=== PATIENT | male | born 1985 | race Caucasian/White ===

== ENCOUNTER 2019-03-03 15:00 | Observation (INO) ==
--- NOTE | 2019-03-03 15:27 | Emergency Department Note ---
Disposition Clinical Impression: Intussusception Altered mental status Qualifiers: Altered mental status type: transient alteration of awareness Qualified Code(s): R40.4 - Transient alteration of awareness Disposition: Admitted As Inpatient Condition: Fair Time of Disposition: 22:33 General Adult HPI - General Chief complaint: ED Abdominal Pain Stated complaint: heat exhaustion Time Seen by Provider: 03/03/19 15:04 Source: EMS Mode of arrival: EMS Limitations: no limitations Nursing Notes Reviewed: Yes Vital Signs Reviewed: Yes - History of Present Illness HPI Narrative: Patient presenting to the ED via EMS for possible heat exhaustion. Patient is homeless and was found "unresponsive" on the sidewalk. When EMS arrived, the patient was awake and following commands. States that he hurts all over. Has been outside for some unknown amount of time. He is complaining of abdominal cramping, but is somewhat confused. He is asking me how much the "girl paid me," but he has no insight into what this means. He is really unable to elaborate on any pertinent history or symptoms. States he does feel constipated Pain Scale: 6 - Related Data Allergies Allergy/AdvReac Type Severity Reaction Status Date / Time Penicillins Allergy Swelling Verified 12/15/18 03:39 of Lip/Tongue/Throat Review of Systems: As reviewed in the HPI. All other systems reviewed are negative or normal. Past Medical History - Past Medical History Attestation: Yes The following information was validated with the patient. Source: old records reviewed Medical history: Reports: asthma Surgical history: Reports: non-contributory Psychiatric history: Reports: no psych history - Social History Smoking Status: Current every day smoker Smokeless Tobacco Status: Yes Alcohol use: Reports: occasionally Drug use: Reports: cocaine, opiates, marijuana, methamphetamine Physical Exam CONSTITUTIONAL: [ill appearing, alert and curled up on his right side] EYES: clear conjunctiva, PERRLA] HENT: [Normocephalic, atraumatic, dry mucus membranes, normal oropharynx] NECK: [normal inspection, full ROM, trachea midline, no obvious swelling] PULMONARY: [normal lung sounds bilaterally, normal chest rise and fall, no respiratory distress or stridor, no wheezes, no rales, no rhonchi CARDIOVASCULAR: [Tachycardic, regular rhythm, normal heart sounds, no murmurs, distal extremities are warm and well perfused] GASTROINSTESTINAL: [Unable to examine at this time as patient is in the position] GENITOURINARY/RECTAL: [deferred] NEUROLOGIC: [Alert, oriented to person and place, questionably time, normal speech, moves all extremities] EXTREMITIES: [Normal inspection, full ROM, no tenderness, no pedal edema, normal capillary refill] MUSCULOSKELETAL: [no gross deformities, atraumatic] SKIN: [No cyanosis, no diaphoresis, normal color, warm, no rash] PSYCHIATRIC: [normal mood and affect] - General Limitations: no limitations General appearance: alert, in no apparent distress Course Course Narrative: Patient has some mild transaminitis and CT showed intussusception. Spoke with on-call surgeon and was agreeable for consultation with admission to the medicine service. Vital Signs Temperature 98.9 F 03/03/19 15:12 Pulse Rate 114 03/03/19 15:12 Respiratory Rate 16 03/03/19 15:12 Blood Pressure 82/40 03/03/19 15:12 O2 Sat by Pulse Oximetry 95 03/03/19 15:12 Temperature 101.6 F H 03/03/19 21:44 Pulse Rate 101 03/03/19 21:44 Respiratory Rate 17 03/03/19 21:44 Blood Pressure 97/65 03/03/19 21:44 O2 Sat by Pulse Oximetry 100 03/03/19 21:44 Oxygen Delivery Oxygen Delivery Room Air Medical Decision Making - Lab Data Result diagrams: 03/03/19 15:23 03/03/19 15:23 Lab Results 03/03/19 03/03/19 03/03/19 Range/Units 15:23 15:23 15:23 WBC 5.0 (4.3-11.1) K/mcL RBC 4.39 (4.19-5.50) M/mcL Hgb 13.5 (12.9-16.9) g/dL Hct 39.9 (37.5-50.1) % MCV 90.9 (83.0-100.0) fL MCH 30.8 (28.0-33.3) pg MCHC 33.8 (31.6-35.5) g/dL RDW 13.6 (11.5-14.5) % Plt Count 251 (140-400) K/mcL MPV 8.5 L (9.4-12.4) fL Immature Gran % 0.2 (0-4) % Seg Neutrophils % 85.9 % Lymphocytes % 13.3 % Monocytes % 0.4 % Eosinophils % 0.0 % Basophils % 0.2 % Neutrophils # 4.3 (1.6-8.9) K/mcL Lymphocytes # 0.7 (0.6-4.6) K/mcL Monocytes # 0.0 (0.0-1.3) K/mcL Eosinophils # 0.0 (0.0-0.6) K/mcL Basophils # 0.0 (0.0-0.2) K/mcL Reactive Lymphocytes Present A (Not Present) PT 13.2 H (9.4-12.1) Seconds INR 1.2 APTT 26.6 (26.0-36.0) Seconds Sodium 137 (136-145) mEq/L Potassium 3.5 (3.5-5.1) mEq/L Chloride 100 (98-107) mEq/L Carbon Dioxide 28 (23-29) mEq/L BUN 23 H (6-20) mg/dL Creatinine 1.35 H (0.70-1.30) mg/dL Est GFR ( Amer) > 60 (> 60) Est GFR (Non-Af Amer) > 60 (> 60) BUN/Creatinine Ratio 17 (6-26) Glucose 117 H (70-105) mg/dL Calculated Osmolality 289 (280-300) Uric Acid 6.4 (2.3-7.6) mg/dL Calcium 9.2 (8.6-10.3) mg/dL Magnesium 1.8 (1.6-2.6) mg/dL Total Bilirubin 1.6 H (0.3-1.0) mg/dL Direct Bilirubin 0.7 H (0.0-0.2) mg/dL Indirect Bilirubin 0.9 (0.0-1.2) mg/dL AST 556 H (13-39) Units/L ALT 194 H (7-52) Units/L Alkaline Phosphatase 163 H (34-104) Units/L Creatine Kinase 138 (30-223) Units/L Serum Total Protein 6.5 (6.4-8.9) g/dL Albumin 4.0 (3.5-5.7) g/dL Globulin 2.5 (2.4-3.5) g/dL Albumin/Globulin Ratio 1.6 (1.1-2.2) Urine Color (Yellow) Urine Clarity (Clear) Urine pH (5.0-8.0) pH Units Ur Specific [place] (1.010-1.025) Urine Protein (Neg-Trace) mg/dL Urine Glucose (UA) (Normal) mg/dL Urine Ketones (Negative) mg/dL Urine Blood (Negative) Urine Nitrite (Negative) Urine Bilirubin (Negative) Urine Urobilinogen (Normal) mg/dL Ur Leukocyte Esterase (Negative) Ur Culture Indicated? (NO) Salicylates < 2.5 L (15.0-30.0) mg/dL Acetaminophen < 10 L (10-20) mcg/mL Ethyl Alcohol < 10 (Less than 10) mg/dL Hepatitis A IgM Ab (Nonreactive) Hep Bs Antigen (Nonreactive) Hep B Core IgM Ab (Nonreactive) 03/03/19 03/03/19 Range/Units 15:23 17:52 WBC (4.3-11.1) K/mcL RBC (4.19-5.50) M/mcL Hgb (12.9-16.9) g/dL Hct (37.5-50.1) % MCV (83.0-100.0) fL MCH (28.0-33.3) pg MCHC (31.6-35.5) g/dL RDW (11.5-14.5) % Plt Count (140-400) K/mcL MPV (9.4-12.4) fL Immature Gran % (0-4) % Seg Neutrophils % % Lymphocytes % % Monocytes % % Eosinophils % % Basophils % % Neutrophils # (1.6-8.9) K/mcL Lymphocytes # (0.6-4.6) K/mcL Monocytes # (0.0-1.3) K/mcL Eosinophils # (0.0-0.6) K/mcL Basophils # (0.0-0.2) K/mcL Reactive Lymphocytes (Not Present) PT (9.4-12.1) Seconds INR APTT (26.0-36.0) Seconds Sodium (136-145) mEq/L Potassium (3.5-5.1) mEq/L Chloride (98-107) mEq/L Carbon Dioxide (23-29) mEq/L BUN (6-20) mg/dL Creatinine (0.70-1.30) mg/dL Est GFR ( Amer) (> 60) Est GFR (Non-Af Amer) (> 60) BUN/Creatinine Ratio (6-26) Glucose (70-105) mg/dL Calculated Osmolality (280-300) Uric Acid (2.3-7.6) mg/dL Calcium (8.6-10.3) mg/dL Magnesium (1.6-2.6) mg/dL Total Bilirubin (0.3-1.0) mg/dL Direct Bilirubin (0.0-0.2) mg/dL Indirect Bilirubin (0.0-1.2) mg/dL AST (13-39) Units/L ALT (7-52) Units/L Alkaline Phosphatase (34-104) Units/L Creatine Kinase (30-223) Units/L Serum Total Protein (6.4-8.9) g/dL Albumin (3.5-5.7) g/dL Globulin (2.4-3.5) g/dL Albumin/Globulin Ratio (1.1-2.2) Urine Color Yellow (Yellow) Urine Clarity Clear (Clear) Urine pH 6.0 (5.0-8.0) pH Units Ur Specific [place] 1.006 L (1.010-1.025) Urine Protein Negative (Neg-Trace) mg/dL Urine Glucose (UA) Normal (Normal) mg/dL Urine Ketones Negative (Negative) mg/dL Urine Blood Negative (Negative) Urine Nitrite Negative (Negative) Urine Bilirubin Negative (Negative) Urine Urobilinogen Normal (Normal) mg/dL Ur Leukocyte Esterase Negative (Negative) Ur Culture Indicated? NO (NO) Salicylates (15.0-30.0) mg/dL Acetaminophen (10-20) mcg/mL Ethyl Alcohol (Less than 10) mg/dL Hepatitis A IgM Ab Nonreactive (Nonreactive) Hep Bs Antigen Nonreactive (Nonreactive) Hep B Core IgM Ab Nonreactive (Nonreactive)
[2019-03-03] MEDS: 0.9 % Sodium Chloride 1,000 ML IVC SCH ×2 (15:45→17:29)
[2019-03-03 15:46] LABS: Basophils % 0.2 %; Hematocrit 39.9 % (37.5-50.1); Hemoglobin 13.5 g/dL (12.9-16.9); Immature Granulocytes % 0.2 % (0-4); Lymphocytes # 0.7 K/mcL (0.6-4.6); Lymphocytes % 13.3 %; Mean Corpuscular HGB Conc 33.8 g/dL (31.6-35.5); Mean Corpuscular Hemoglobin 30.8 pg (28.0-33.3); Mean Corpuscular Volume 90.9 fL (83.0-100.0); Mean Platelet Volume 8.5 fL (9.4-12.4); Monocytes % 0.4 %; Neutrophils # 4.3 K/mcL (1.6-8.9); Platelet Count 251 K/mcL (140-400); Red Blood Count 4.39 M/mcL (4.19-5.50); Red Cell Distribution Width 13.6 % (11.5-14.5); Segmented Neutrophils % 85.9 %
[2019-03-03 15:53] LABS: INR 1.2; Prothrombin Time 13.2 Seconds (9.4-12.1)
[2019-03-03 15:56] LABS: Activated Partial Thrombo Time 26.6 Seconds (26.0-36.0)
--- NOTE | 2019-03-03 16:02 | Emergency Department Note ---
Disposition Clinical Impression: Altered mental status Qualifiers: Altered mental status type: transient alteration of awareness Qualified Code(s): R40.4 - Transient alteration of awareness Disposition: Still a Patient Referrals: NONE,PCP [Primary Care Provider] - Forms: ED Satisfaction Letter, Work/School Release Time of Disposition: 16:02 General Adult HPI - General Chief complaint: ED Abdominal Pain Stated complaint: heat exhaustion Time Seen by Provider: 03/03/19 15:04 Source: EMS Mode of arrival: EMS Limitations: no limitations - History of Present Illness Pain Scale: 6 - Related Data Allergies Allergy/AdvReac Type Severity Reaction Status Date / Time Penicillins Allergy Swelling Verified 12/15/18 03:39 of Lip/Tongue/Throat Past Medical History - Past Medical History Medical history: Reports: asthma Surgical history: Reports: non-contributory Psychiatric history: Reports: no psych history - Social History Smoking Status: Current every day smoker Smokeless Tobacco Status: Yes Alcohol use: Reports: occasionally Drug use: Reports: cocaine, opiates, marijuana, methamphetamine Physical Exam - General Limitations: no limitations General appearance: alert, in no apparent distress Course Vital Signs Temperature 98.9 F 03/03/19 15:12 Pulse Rate 114 03/03/19 15:12 Respiratory Rate 16 03/03/19 15:12 Blood Pressure 82/40 03/03/19 15:12 O2 Sat by Pulse Oximetry 95 03/03/19 15:12 Temperature 98.9 F 03/03/19 15:12 Pulse Rate 114 03/03/19 15:12 Respiratory Rate 16 03/03/19 15:12 Blood Pressure 82/40 03/03/19 15:12 O2 Sat by Pulse Oximetry 95 03/03/19 15:12 Oxygen Delivery Oxygen Delivery Room Air Medical Decision Making - Lab Data Result diagrams: 03/03/19 15:23 03/03/19 15:23 Lab Results 03/03/19 03/03/19 03/03/19 Range/Units 15:23 15:23 15:23 WBC 5.0 (4.3-11.1) K/mcL RBC 4.39 (4.19-5.50) M/mcL Hgb 13.5 (12.9-16.9) g/dL Hct 39.9 (37.5-50.1) % MCV 90.9 (83.0-100.0) fL MCH 30.8 (28.0-33.3) pg MCHC 33.8 (31.6-35.5) g/dL RDW 13.6 (11.5-14.5) % Plt Count 251 (140-400) K/mcL MPV 8.5 L (9.4-12.4) fL Immature Gran % 0.2 (0-4) % Seg Neutrophils % 85.9 % Lymphocytes % 13.3 % Monocytes % 0.4 % Eosinophils % 0.0 % Basophils % 0.2 % Neutrophils # 4.3 (1.6-8.9) K/mcL Lymphocytes # 0.7 (0.6-4.6) K/mcL Monocytes # 0.0 (0.0-1.3) K/mcL Eosinophils # 0.0 (0.0-0.6) K/mcL Basophils # 0.0 (0.0-0.2) K/mcL Reactive Lymphocytes Present A (Not Present) PT 13.2 H (9.4-12.1) Seconds INR 1.2 APTT 26.6 (26.0-36.0) Seconds Sodium 137 (136-145) mEq/L Potassium 3.5 (3.5-5.1) mEq/L Chloride 100 (98-107) mEq/L Carbon Dioxide 28 (23-29) mEq/L BUN 23 H (6-20) mg/dL Creatinine 1.35 H (0.70-1.30) mg/dL Est GFR ( Amer) > 60 (> 60) Est GFR (Non-Af Amer) > 60 (> 60) BUN/Creatinine Ratio 17 (6-26) Glucose 117 H (70-105) mg/dL Calculated Osmolality 289 (280-300) Uric Acid 6.4 (2.3-7.6) mg/dL Calcium 9.2 (8.6-10.3) mg/dL Magnesium 1.8 (1.6-2.6) mg/dL Total Bilirubin 1.6 H (0.3-1.0) mg/dL Direct Bilirubin 0.7 H (0.0-0.2) mg/dL Indirect Bilirubin 0.9 (0.0-1.2) mg/dL AST 556 H (13-39) Units/L ALT 194 H (7-52) Units/L Alkaline Phosphatase 163 H (34-104) Units/L Creatine Kinase 138 (30-223) Units/L Serum Total Protein 6.5 (6.4-8.9) g/dL Albumin 4.0 (3.5-5.7) g/dL Globulin 2.5 (2.4-3.5) g/dL Albumin/Globulin Ratio 1.6 (1.1-2.2) Attestation Statement - Attestation Attestation: I examined this patient and my medical decision-making was reviewed with the Resident Physician. I agree with the documented findings, disposition and navarro atment plan as described except to the extent set forth below. 33 year old male found altered on the side of the streeet sleeping concern for overdose and unresponsive. It is unknown how long he has been sleeping on the side of the streeet and appears severly dehydrated and hypotensive and did not require narcan for arousal. Sam is alert but appears confused and is able to follows commands intermiteently. WE will wokrup for AMS, and heat syncope vs toxiciological nature of his unresponsive nature.
[2019-03-03 16:07] LABS: Alanine Aminotransferase 194 Units/L (7-52); Albumin/Globulin Ratio 1.6 (1.1-2.2); Alkaline Phosphatase 163 Units/L (34-104); Aspartate Amino Transferase 556 Units/L (13-39); BUN/Creatinine Ratio 17 (6-26); Bilirubin,Direct 0.7 mg/dL (0.0-0.2); Bilirubin,Indirect 0.9 mg/dL (0.0-1.2); Bilirubin,Total 1.6 mg/dL (0.3-1.0); Blood Urea Nitrogen 23 mg/dL (6-20); Calcium 9.2 mg/dL (8.6-10.3); Carbon Dioxide 28 mEq/L (23-29); Chloride 100 mEq/L (98-107); Creatine Kinase 138 Units/L (30-223); Globulin 2.5 g/dL (2.4-3.5); Glucose 117 mg/dL (70-105); Magnesium 1.8 mg/dL (1.6-2.6); Osmolality,Calculated 289 (280-300); Potassium 3.5 mEq/L (3.5-5.1); Sodium 137 mEq/L (136-145); Total Protein 6.5 g/dL (6.4-8.9); Uric Acid 6.4 mg/dL (2.3-7.6); eGFR For Non-African Americans > 60 (> 60)
[2019-03-03 16:18] LABS: Reactive Lymphocytes Present (Not Present)
[2019-03-03] MEDS ORDERED: Isovue-370 500 ML BOTTLE IVP ONE (16:54)
[2019-03-03 17:39] LABS: Acetaminophen < 10 mcg/mL (10-20); Ethanol < 10 mg/dL (Less than 10); Salicylate < 2.5 mg/dL (15.0-30.0)
[2019-03-03 18:08] LABS: Bilirubin,Urine Negative (Negative); Blood,Urine Negative (Negative); Clarity,Urine Clear (Clear); Color,Urine Yellow (Yellow); Glucose,Urine (UA) Normal (Normal); Ketones,Urine Negative (Negative); Leukocyte Esterase,Urine Negative (Negative); Nitrite,Urine Negative (Negative); Protein,Urine Negative (Neg-Trace); Specific Gravity,Urine 1.006 (1.010-1.025); Urobilinogen,Urine Normal (Normal)
[2019-03-03 18:18] LABS: Hepatitis B Surface Antigen Nonreactive (Nonreactive)
[2019-03-03 18:48] LABS: Hepatitis B Core IgM Nonreactive (Nonreactive)
[2019-03-03 18:49] LABS: Hepatitis A Antibody IgM Nonreactive (Nonreactive)
[2019-03-03] MEDS ORDERED: Thiamine (B-1) 100 MG, Folic Acid 1 MG, MVI, adult with vitamin K 10 ML in 0.9 % Sodi... IVPB ONE (19:50)
[2019-03-03] MEDS ORDERED: Ondansetron 4 MG/2 ML VIAL IVP PRN (19:51)
[2019-03-03] MEDS ORDERED: D5% in Lactated Ringers 1,000 ML IVC SCH (20:00)
[2019-03-03] MEDS ORDERED: *HR* Promethazine 25 MG/ML VIAL IVP PRN (20:01)
[2019-03-03] MEDS ORDERED: *HR* LORazepam 2 MG/ML VIAL IVP PRN ×3 (20:01)
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
[2019-03-03] MEDS ORDERED: Ibuprofen 600 MG TABLET PO ONE (21:51)
[2019-03-03 23:13] LABS: Hepatitis C Virus Antibody Reactive (Nonreactive)
[2019-03-03 23:51] LABS: Amphetamine Screen,Urine Positive ng/mL (Cutoff=1000); Barbiturate Screen,Urine Negative ng/mL (Cutoff=200); Benzodiazepines Screen,Urine Negative ng/mL (Cutoff=200); Cannabinoid Screen,Urine Negative ng/mL (Cutoff = 50); Cocaine Screen,Urine Negative ng/mL (Cutoff= 300); Opiate Screen,Urine Negative ng/mL (Cutoff=300); Phencyclidine Screen,Urine Negative ng/mL (Cutoff=25)
[2019-03-04] MEDS ORDERED: *HR* Heparin 5,000 UNIT/ML VIAL SQ SCH (06:00)
[2019-03-04 06:27] LABS: Alanine Aminotransferase 172 Units/L (7-52); Albumin 3.2 g/dL (3.5-5.7); Albumin/Globulin Ratio 1.4 (1.1-2.2); Alkaline Phosphatase 116 Units/L (34-104); Aspartate Amino Transferase 189 Units/L (13-39); BUN/Creatinine Ratio 20 (6-26); Bilirubin,Direct 0.3 mg/dL (0.0-0.2); Bilirubin,Indirect 0.4 mg/dL (0.0-1.2); Bilirubin,Total 0.7 mg/dL (0.3-1.0); Blood Urea Nitrogen 18 mg/dL (6-20); Calcium 7.6 mg/dL (8.6-10.3); Carbon Dioxide 25 mEq/L (23-29); Chloride 104 mEq/L (98-107); Globulin 2.3 g/dL (2.4-3.5); Glucose 186 mg/dL (70-105); Osmolality,Calculated 291 (280-300); Potassium 3.5 mEq/L (3.5-5.1); Sodium 137 mEq/L (136-145); Total Protein 5.5 g/dL (6.4-8.9); eGFR For Non-African Americans > 60 (> 60)
[2019-03-04] MEDS ORDERED: Nicotine 2 MG GUM BC PRN (09:47)
--- NOTE | 2019-03-04 09:53 | Internal Med Progress Note ---
Hospitalist Progress Note - Encounter Date of Encounter: 03/04/19 Time of Encounter: 09:52 - Exam Vitals: Temp Pulse Resp BP Pulse Ox 98.9 F 87 15 106/66 99 03/04/19 06:54 03/04/19 06:54 03/04/19 06:54 03/04/19 06:54 03/04/19 06:54 - Time Spent with Patient Total time spent is greater than 50% in coordination of care (as documented) at patient's floor/unit and/or counseling patient: Internal Medicine: Result - Labs CBC & Chem 7: 03/03/19 15:23 03/04/19 05:45 Labs: Short CBC 03/03/19 Range/Units 15:23 WBC 5.0 (4.3-11.1) K/mcL Hgb 13.5 (12.9-16.9) g/dL Hct 39.9 (37.5-50.1) % Plt Count 251 (140-400) K/mcL Neutrophils # 4.3 (1.6-8.9) K/mcL BMP 03/03/19 03/04/19 15:23 05:45 Sodium 137 137 Potassium 3.5 3.5 Chloride 100 104 Carbon Dioxide 28 25 BUN 23 H 18 Creatinine 1.35 H 0.89 Glucose 117 H 186 H Calcium 9.2 7.6 L Liver Function 03/03/19 03/04/19 Range/Units 15:23 05:45 Total Bilirubin 1.6 H 0.7 (0.3-1.0) mg/dL Direct Bilirubin 0.7 H 0.3 H (0.0-0.2) mg/dL AST 556 H 189 H (13-39) Units/L ALT 194 H 172 H (7-52) Units/L Alkaline Phosphatase 163 H 116 H (34-104) Units/L Albumin 4.0 3.2 L (3.5-5.7) g/dL Urine 03/03/19 Range/Units 17:52 Urine Color Yellow (Yellow) Urine Clarity Clear (Clear) Urine pH 6.0 (5.0-8.0) pH Units Ur Specific [place] 1.006 L (1.010-1.025) Urine Protein Negative (Neg-Trace) mg/dL Urine Glucose (UA) Normal (Normal) mg/dL - ABG Interpretation ABG results: PT/INR, D-dimer PT 13.2 Seconds (9.4-12.1) H 03/03/19 15:23 - Impressions Impressions Abdomen/Pelvis CT 03/03/19 16:54 IMPRESSION: There is a small bowel intussusception in the right lower quadrant and right pelvis. The intussusception measures approximately 9 cm in length. Most intussusceptions are transient however this intussusception is relatively long. There is a small amount of free fluid in the abdomen and pelvis particularly in the gallbladder fossa. There is periportal edema, a nonspecific finding. This may be seen with inflammation, infection, trauma and fluid overload. D/ / Joshua Jacobs MD / Joshua Jacobs MD Interpreting Provider: Joshua Jacobs MD Head CT 03/03/19 16:54 IMPRESSION: No acute intracranial abnormality. D/ / Luis E Boyer MD / Luis E Boyer MD Interpreting Provider: Luis E Boyer MD Chest X-Ray 03/03/19 16:55 IMPRESSION: No acute process. D/ / Luis E Boyer MD / Luis E Boyer MD Interpreting Provider: Luis E Boyer MD Consult Discharge Plan - Plan Referrals: NONE,PCP [Primary Care Provider] -
[2019-03-04 10:13] VITALS: BP 100/65
--- NOTE | 2019-03-04 13:00 | Discharge Summary ---
Orders not resulted at time of discharge: Pending orders 03/03/19 15:23 ECG 12 lead ECG [ECG] Stat 03/03/19 19:56 Liver Ultrasound [US liver] [US] Routine 03/03/19 22:24 Culture,Blood [BC] Stat Date of Encounter: 03/04/19 Time of Encounter: 12:49 Hospital course: Mr. Art is a 33 year old male patient with history of substance use disorder got admitted for altered mental status but head CT negative, AMY, abdominal pain. Increased LFT was found with normal ammonia. Urine drug screen positive for amphetamine. CT abdomen with finding of 9 cm a small bowel intussusception. Initial supportive treatment is started and patient is started to improve and almost back to his baseline mental status. Patient alert awake oriented 3 and found Able to make decision. He denies any alcohol abuse and no underlying psych illness. I evaluated patient in the morning and discussed the plan about surgery consultation for intussusception and further monitoring of LFTs as patient is hepatitis C positive , at risk of acute hepatitis with failure and he was okay with the plan. Later in the morning nurse called me patient wanted to leave AMA therefore I went to talk to the patient. I informed and educated the patient about the importance of further monitoring of liver function and having surgery opinion for intussusception that can lead to acute abdomen presentation with ischemia and that can put his life in danger including . But patient was highly adamant to leave hospital at any cost to meet his girlfriend who was placed in half-way yesterday. He was advised to follow with primary care physician in one or 2 days-patient agreed. Patient was educated to avoid acetaminophen or [id number] medicine that can affect the liver- discuss with primary care physician as well. Advised to continue [id number] multivitamin with B complex. Patient left AMA Discharge discussed with: patient, nurse - Time Spent with Patient Total time spent providing and/or coordinating discharge services: Time spent: Less than 30 minutes - Discharge Medications Allergies/Adverse Reactions: Allergy/AdvReac Type Severity Reaction Status Date / Time Penicillins Allergy Swelling Verified 12/15/18 03:39 of Lip/Tongue/Throat Date of admission: 03/03/19 19:54 Primary care physician: PCP NONE Consults: 03/04/19 09:55 Consult to Surgery [CONS] Routine Consulting Provider: Acute Care Surgery Reason for Consult: Intussusception Call Completed: Yes - Constitutional Vitals: Temp Pulse Resp BP Pulse Ox 97.5 F L 89 15 100/65 98 03/04/19 10:11 03/04/19 10:11 03/04/19 10:11 03/04/19 10:11 03/04/19 10:11 Exam: General: Emaciated, unkempt and disheveled appearing. Skin: Warm and dry with multiple tattoos. HEENT: Dry mucous membranes. No conjunctivae pallor. Icteric sclerae. Neck: No JVD. Supple Chest: Clear to auscultation bilaterally Heart: Regular rate and rhythm with no murmur Abdomen -mild tenderness on right abdomen, no guarding rigidity. Hyperactive also Extremities: No clubbing, cyanosis or edema. No calf tenderness. Neurologialert awake oriented 3. Following commands. Motor 5 x 5 in all 4 extremities. Gait normal. No focal neurological deficit. Cranial nerves II-12 intact. Psych- Anxious but Able to make decision. Denies homicidal or suicidal thoughts or plan. - Patient Status Disposition: Left Against Medical Advice Condition: Fair - Discharge Instructions Follow Up With: NONE,PCP [Primary Care Provider] -
--- NOTE | 2019-03-04 14:26 | Electrocardiograph Report ---
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
== END 2019-03-04 10:32 | disposition left against medical advice (07) ==
LOC: EMEROOARM 15:00 → 3ANU 15:00
PROVIDERS: ADMIT Internal Medicine; ATTEND Internal Medicine

== ENCOUNTER 2019-04-08 15:46 | Inpatient (IN) ==
[2019-04-08] MEDS ORDERED: 0.9 % Sodium Chloride 1,000 ML IVC ONE (17:39)
[2019-04-08] MEDS ORDERED: Cefepime HCl 2,000 MG in Water for inj. (sterile) 20 ML IVP STA (17:41)
[2019-04-08 18:12] LABS: Basophils % 0.6 %; Eosinophils # 0.3 K/mcL (0.0-0.6); Eosinophils % 4.7 %; Hematocrit 37.4 % (37.5-50.1); Hemoglobin 12.3 g/dL (12.9-16.9); Immature Granulocytes % 0.4 % (0-4); Lymphocytes % 29.1 %; Mean Corpuscular HGB Conc 32.9 g/dL (31.6-35.5); Mean Corpuscular Hemoglobin 29.9 pg (28.0-33.3); Mean Platelet Volume 8.9 fL (9.4-12.4); Monocytes # 0.8 K/mcL (0.0-1.3); Monocytes % 10.9 %; Platelet Count 327 K/mcL (140-400); Red Blood Count 4.11 M/mcL (4.19-5.50); Red Cell Distribution Width 13.6 % (11.5-14.5); Segmented Neutrophils % 54.3 %
[2019-04-08 18:17] LABS: Neutrophils # 3.8 K/mcL (1.6-8.9); White Blood Count 6.9 K/mcL (4.3-11.1)
[2019-04-08 18:29] LABS: Albumin 3.3 g/dL (3.5-5.7); Albumin/Globulin Ratio 1.1 (1.1-2.2); Bilirubin,Direct 0.1 mg/dL (0.0-0.2); Bilirubin,Indirect 0.2 mg/dL (0.0-1.2); Bilirubin,Total 0.3 mg/dL (0.3-1.0); Total Protein 6.3 g/dL (6.4-8.9)
[2019-04-08 18:30] LABS: BUN/Creatinine Ratio 15 (6-26); Blood Urea Nitrogen 9 mg/dL (6-20); Calcium 8.2 mg/dL (8.6-10.3); Carbon Dioxide 27 mEq/L (23-29); Chloride 108 mEq/L (98-107); Glucose 157 mg/dL (70-105); Osmolality,Calculated 298 (280-300); Potassium 3.2 mEq/L (3.5-5.1); Sodium 143 mEq/L (136-145); eGFR For African Americans > 60 (> 60); eGFR For Non-African Americans > 60 (> 60)
--- NOTE | 2019-04-08 19:46 | Emergency Department Note ---
Disposition Clinical Impression: Left arm cellulitis, Abscess of left arm Disposition: Admitted As Inpatient Condition: Fair Time of Disposition: 20:28 General Adult HPI - General Chief complaint: ED Extremity Injury, Upper Stated complaint: "left arm has MRSA in it" Time Seen by Provider: 04/08/19 15:55 Source: patient Limitations: no limitations - History of Present Illness HPI Narrative: Patient is a 33-year-old gentleman who has history of IV drug use he presents to the emergency department with chief complaint of draining wound in his left arm. Patient reports that he injected himself in his left antecubital area will days ago. The patient noticed that the area became extremely red and swollen was draining purulent material. The patient reports that he had fevers chills and generally feeling unwell. The patient reports that there is been a large amount of purulent material draining out of that side as well the patient states serious painful states that it is worse with movement and improves with rest Pain Scale: 5 - Related Data Home Medications Medication Instructions Recorded Confirmed No Known Home Drugs 04/08/19 04/08/19 Allergies Allergy/AdvReac Type Severity Reaction Status Date / Time Penicillins Allergy Swelling Verified 04/06/19 00:55 of Lip/Tongue/Throat All systems ED: reviewed and negative except as stated. Past Medical History - Past Medical History Attestation: Yes The following information was validated with the patient. Medical history: Reports: asthma Surgical history: Reports: non-contributory Psychiatric history: Reports: no psych history - Social History Smoking Status: Current every day smoker Smokeless Tobacco Status: Yes Alcohol use: Reports: occasionally Drug use: Reports: cocaine, opiates, marijuana, methamphetamine Physical Exam General: Conversant and pleasant interactive and nontoxic. Head: Normocephalic/atraumatic Eyes:PERRLA, EOMI, no conjunctivitis Nares: Without d/c. Ears: No erythema or d/c noted. 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 Cardovascular: regular rate and rhythm without murmur, brisk capillary refill, no peripheral edema. Lungs: Clear to ascultation bilaterally, non-labored Abd: Soft nontender, Non Distended, no guarding, no rebound. : Defered Extremities: moves all extremities equally left upper extremity there is a large open wound in the left antecubital fossa draining purulent material Neuro: AOx3, no obvious gross neuro deficit Psych: Normal Affect Derm: No rash noted - General Limitations: no limitations General appearance: alert, in no apparent distress Course Course Narrative: Patient received blood cultures and wound cultures of the emergency department the patient was started on vancomycin and cefepime the case will be discussed with the hospitalist and the plan is for admission for IV antibiotic and further potential debridement Vital Signs Temperature 98.6 F 04/08/19 15:48 Pulse Rate 80 04/08/19 15:48 Respiratory Rate 18 04/08/19 15:48 Blood Pressure 123/79 04/08/19 15:48 O2 Sat by Pulse Oximetry 97 04/08/19 15:48 Temperature 98.6 F 04/08/19 15:48 Pulse Rate 90 04/08/19 19:39 Respiratory Rate 20 04/08/19 19:39 Blood Pressure 120/90 04/08/19 19:39 O2 Sat by Pulse Oximetry 99 04/08/19 19:39 Oxygen Delivery Oxygen Delivery Room Air Medical Decision Making - Lab Data Result diagrams: 04/08/19 17:39 04/08/19 17:53 Lab Results 04/08/19 04/08/19 04/08/19 Range/Units 17:39 17:44 17:53 WBC 6.9 D (4.3-11.1) K/mcL RBC 4.11 L (4.19-5.50) M/mcL Hgb 12.3 L (12.9-16.9) g/dL Hct 37.4 L (37.5-50.1) % MCV 91.0 (83.0-100.0) fL MCH 29.9 (28.0-33.3) pg MCHC 32.9 (31.6-35.5) g/dL RDW 13.6 (11.5-14.5) % Plt Count 327 (140-400) K/mcL MPV 8.9 L (9.4-12.4) fL Immature Gran % 0.4 (0-4) % Seg Neutrophils % 54.3 % Lymphocytes % 29.1 % Monocytes % 10.9 % Eosinophils % 4.7 % Basophils % 0.6 % Neutrophils # 3.8 (1.6-8.9) K/mcL Lymphocytes # 2.0 (0.6-4.6) K/mcL Monocytes # 0.8 (0.0-1.3) K/mcL Eosinophils # 0.3 (0.0-0.6) K/mcL Basophils # 0.0 (0.0-0.2) K/mcL Sodium 143 (136-145) mEq/L Potassium 3.2 L (3.5-5.1) mEq/L Chloride 108 H (98-107) mEq/L Carbon Dioxide 27 (23-29) mEq/L BUN 9 (6-20) mg/dL Creatinine 0.60 L (0.70-1.30) mg/dL Est GFR ( Amer) > 60 (> 60) Est GFR (Non-Af Amer) > 60 (> 60) BUN/Creatinine Ratio 15 (6-26) Glucose 157 H (70-105) mg/dL Calculated Osmolality 298 (280-300) Lactic Acid (0.5-2.2) mmol/L Calcium 8.2 L (8.6-10.3) mg/dL Total Bilirubin 0.3 (0.3-1.0) mg/dL Direct Bilirubin 0.1 (0.0-0.2) mg/dL Indirect Bilirubin 0.2 (0.0-1.2) mg/dL AST 27 (13-39) Units/L ALT 41 (7-52) Units/L Alkaline Phosphatase 97 (34-104) Units/L Serum Total Protein 6.3 L (6.4-8.9) g/dL Albumin 3.3 L (3.5-5.7) g/dL Globulin 3.0 (2.4-3.5) g/dL Albumin/Globulin Ratio 1.1 (1.1-2.2) 04/08/19 Range/Units 17:53 WBC (4.3-11.1) K/mcL RBC (4.19-5.50) M/mcL Hgb (12.9-16.9) g/dL Hct (37.5-50.1) % MCV (83.0-100.0) fL MCH (28.0-33.3) pg MCHC (31.6-35.5) g/dL RDW (11.5-14.5) % Plt Count (140-400) K/mcL MPV (9.4-12.4) fL Immature Gran % (0-4) % Seg Neutrophils % % Lymphocytes % % Monocytes % % Eosinophils % % Basophils % % Neutrophils # (1.6-8.9) K/mcL Lymphocytes # (0.6-4.6) K/mcL Monocytes # (0.0-1.3) K/mcL Eosinophils # (0.0-0.6) K/mcL Basophils # (0.0-0.2) K/mcL Sodium (136-145) mEq/L Potassium (3.5-5.1) mEq/L Chloride (98-107) mEq/L Carbon Dioxide (23-29) mEq/L BUN (6-20) mg/dL Creatinine (0.70-1.30) mg/dL Est GFR ( Amer) (> 60) Est GFR (Non-Af Amer) (> 60) BUN/Creatinine Ratio (6-26) Glucose (70-105) mg/dL Calculated Osmolality (280-300) Lactic Acid 1.5 (0.5-2.2) mmol/L Calcium (8.6-10.3) mg/dL Total Bilirubin (0.3-1.0) mg/dL Direct Bilirubin (0.0-0.2) mg/dL Indirect Bilirubin (0.0-1.2) mg/dL AST (13-39) Units/L ALT (7-52) Units/L Alkaline Phosphatase (34-104) Units/L Serum Total Protein (6.4-8.9) g/dL Albumin (3.5-5.7) g/dL Globulin (2.4-3.5) g/dL Albumin/Globulin Ratio (1.1-2.2)
[2019-04-08] MEDS ORDERED: Acetaminophen 325 MG TABLET PO PRN (20:31)
[2019-04-08] MEDS ORDERED: Naloxone 0.4 MG/ML INJ IVP PRN (20:31)
[2019-04-08] MEDS ORDERED: *HR* Promethazine 25 MG/ML VIAL IVP PRN (20:31)
[2019-04-08] MEDS ORDERED: Isovue-370 500 ML BOTTLE IVP ONE (20:35)
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
[2019-04-08] MEDS: 0.9 % Sodium Chloride w KCl 20 MEQ/1,000 ML MLS IVC SCH (23:49)
[2019-04-09 03:56] LABS: Amphetamine Screen,Urine Positive ng/mL (Cutoff=1000); Barbiturate Screen,Urine Negative ng/mL (Cutoff=200); Benzodiazepines Screen,Urine Negative ng/mL (Cutoff=200); Cannabinoid Screen,Urine Negative ng/mL (Cutoff = 50); Cocaine Screen,Urine Negative ng/mL (Cutoff= 300); Opiate Screen,Urine Negative ng/mL (Cutoff=300); Phencyclidine Screen,Urine Negative ng/mL (Cutoff=25)
[2019-04-09 05:28] LABS: Basophils # 0.1 K/mcL (0.0-0.2); Basophils % 0.9 %; Eosinophils # 0.3 K/mcL (0.0-0.6); Hematocrit 37.4 % (37.5-50.1); Hemoglobin 12.5 g/dL (12.9-16.9); Immature Granulocytes % 0.2 % (0-4); Lymphocytes # 1.9 K/mcL (0.6-4.6); Lymphocytes % 33.8 %; Mean Corpuscular HGB Conc 33.4 g/dL (31.6-35.5); Mean Corpuscular Hemoglobin 30.5 pg (28.0-33.3); Mean Corpuscular Volume 91.2 fL (83.0-100.0); Mean Platelet Volume 8.9 fL (9.4-12.4); Monocytes # 0.4 K/mcL (0.0-1.3); Monocytes % 7.7 %; Neutrophils # 2.9 K/mcL (1.6-8.9); Platelet Count 312 K/mcL (140-400); Segmented Neutrophils % 52.4 %; White Blood Count 5.6 K/mcL (4.3-11.1)
[2019-04-09 05:44] LABS: INR 0.9; Prothrombin Time 10.4 Seconds (9.4-12.1)
[2019-04-09 05:46] LABS: Activated Partial Thrombo Time 29.7 Seconds (26.0-36.0); Alanine Aminotransferase 37 Units/L (7-52); Albumin 2.9 g/dL (3.5-5.7); Alkaline Phosphatase 89 Units/L (34-104); Aspartate Amino Transferase 26 Units/L (13-39); BUN/Creatinine Ratio 13 (6-26); Bilirubin,Total 0.3 mg/dL (0.3-1.0); Blood Urea Nitrogen 6 mg/dL (6-20); Calcium 7.7 mg/dL (8.6-10.3); Carbon Dioxide 24 mEq/L (23-29); Chloride 111 mEq/L (98-107); Globulin 2.8 g/dL (2.4-3.5); Glucose 116 mg/dL (70-105); Magnesium 1.9 mg/dL (1.6-2.6); Osmolality,Calculated 291 (280-300); Potassium 3.5 mEq/L (3.5-5.1); Sodium 141 mEq/L (136-145); Total Protein 5.7 g/dL (6.4-8.9); eGFR For African Americans > 60 (> 60); eGFR For Non-African Americans > 60 (> 60)
[2019-04-09 05:51] LABS: Platelet Estimate Normal (Normal)
[2019-04-09 05:52] LABS: Reactive Lymphocytes Present (Not Present)
[2019-04-09] MEDS ORDERED: *HR* Heparin 5,000 UNIT/ML VIAL SQ SCH (06:00)
[2019-04-09] MEDS: 0.9 % Sodium Chloride w KCl 20 MEQ/1,000 ML MLS IVC SCH (08:01)
--- NOTE | 2019-04-09 08:06 | Internal Med Progress Note ---
Hospitalist Progress Note - Encounter Date of Encounter: 04/09/19 - Exam Vitals: Temp Pulse Resp BP Pulse Ox 98.5 F 80 16 103/69 100 04/09/19 06:49 04/09/19 06:49 04/09/19 06:49 04/09/19 06:49 04/09/19 06:49 Exam: kameron rogel - Assessment and Plan (1) Left arm cellulitis Current Visit: Yes Status: Acute Assessment and Plan: 1. Antibiotics and surgery as above. (2) Abscess of left arm Current Visit: Yes Status: Acute Assessment and Plan: 1. Cultures of blood and wound obtained. 2. Will treat with Vancomycin and Levaquin. 3. Consult orthopedics -- Dr. Lundy notified. 4. Will CT left arm. 5. Likely surgery vs. bedside I&D tomorrow with orthopedics. (3) IVDU (intravenous drug user) Current Visit: Yes Status: Chronic Assessment and Plan: 1. Will place on residential monitor and obtain baseline EKG. 2. Will order urine drug tox screen. (4) DVT prophylaxis Current Visit: Yes Status: Acute Assessment and Plan: 1. Heparin SQ. - Time Spent with Patient Total time spent is greater than 50% in coordination of care (as documented) at patient's floor/unit and/or counseling patient: Internal Medicine: Result - Labs CBC & Chem 7: 04/09/19 05:14 04/09/19 05:14 Labs: Short CBC 04/08/19 04/09/19 Range/Units 17:39 05:14 WBC 6.9 D 5.6 (4.3-11.1) K/mcL Hgb 12.3 L 12.5 L (12.9-16.9) g/dL Hct 37.4 L 37.4 L (37.5-50.1) % Plt Count 327 312 (140-400) K/mcL Neutrophils # 3.8 2.9 (1.6-8.9) K/mcL BMP 04/08/19 04/09/19 17:53 05:14 Sodium 143 141 Potassium 3.2 L 3.5 Chloride 108 H 111 H Carbon Dioxide 27 24 BUN 9 6 Creatinine 0.60 L 0.48 L Glucose 157 H 116 H Calcium 8.2 L 7.7 L Liver Function 04/08/19 04/09/19 Range/Units 17:44 05:14 Total Bilirubin 0.3 0.3 (0.3-1.0) mg/dL Direct Bilirubin 0.1 (0.0-0.2) mg/dL AST 27 26 (13-39) Units/L ALT 41 37 (7-52) Units/L Alkaline Phosphatase 97 89 (34-104) Units/L Albumin 3.3 L 2.9 L (3.5-5.7) g/dL - ABG Interpretation ABG results: PT/INR, D-dimer PT 10.4 Seconds (9.4-12.1) 04/09/19 05:14 - Impressions Impressions Upper Extremity CT 04/08/19 20:35 IMPRESSION: 1. Subcutaneous fat stranding of the antecubital fossa compatible with cellulitis. No well-defined drainable fluid collection. There are a few small foci of soft tissue gas that are nonspecific. Recommend correlation with recent instrumentation. 2. No acute osseous abnormality. D/ / Ashok Trujillo MD / Ashok Trujillo MD Interpreting Provider: Ashok Trujillo MD Consult Discharge Plan - Plan Referrals: NONE,PCP [Primary Care Provider] -
[2019-04-09] MEDS ORDERED: Clindamycin 600 MG/50 ML 600 MG/50 ML IV.SOLN IVPB SCH (08:07)
[2019-04-09] MEDS ORDERED: levoFLOXacin 750 MG/150 ML 750 MG/150 ML BAG IVPB SCH (09:00)
[2019-04-09 10:42] VITALS: BP 118/78
--- NOTE | 2019-04-09 12:43 | Discharge Summary ---
Date of Encounter: 04/09/19 Time of Encounter: 16:00 - Discharge Diagnosis (1) Abscess of left arm Priority: Primary Status: Acute Assessment and Plan: 33 year old male who presents to the ER with complaints of left arm abscess and drainage. He had an open draining lesion from IV injection drug use. Cultures were obtained from blood and the wound and patient was started on antibiotics in the ER. He was then admitted to hospitalist service.He finally admitted that he shoots up "ice" into his left arm. He was assessed with left arm abscess and cellulitis and started on vanc and levaquin and cultures were ordered. He was seen by orthopedic surgery and had a debridement of his abscess done. He was counseled on the need for IV antibiotics and awaiting culture results but aptient elected to go home. He was discharged o n po bactrim and cefdinir . 35 minutes was spent discharging this patient (2) Left arm cellulitis Priority: Primary Status: Acute Assessment and Plan: 1. Antibiotics and surgery as above. (3) IVDU (intravenous drug user) Priority: Primary Status: Chronic (4) DVT prophylaxis Priority: Primary Status: Acute Hospital course: Mr. Art is a 33 year old male - Time Spent with Patient Total time spent providing and/or coordinating discharge services: - Discharge Medications Prescriptions: New Sulfamethoxazole/Trimeth DS [Bactrim DS] 1 each PO BID #14 tablet Cefdinir [Omnicef] 300 mg PO BID #14 capsule Home Medications: Cefdinir [Omnicef] 300 mg PO BID #14 capsule 04/09/19 [Rx] Sulfamethoxazole/Trimeth DS [Bactrim DS] 1 each PO BID #14 tablet 04/09/19 [Rx] Allergies/Adverse Reactions: Allergy/AdvReac Type Severity Reaction Status Date / Time Penicillins Allergy Swelling Verified 04/06/19 00:55 of Lip/Tongue/Throat Date of admission: 04/08/19 20:20 Primary care physician: PCP NONE Consults: 04/08/19 20:34 Consult to Physician [CONS] Routine Consulting Provider: Rome Lundy Reason for Consult: left antecubital abscess Time Notified: 20:35 Call Completed: Yes - Constitutional Vitals: Temp Pulse Resp BP Pulse Ox 97.4 F L 90 16 118/78 97 04/09/19 10:39 04/09/19 10:39 04/09/19 10:39 04/09/19 10:39 04/09/19 10:39 General appearance: Present: disheveled, A&O X 3, no acute distress. Absent: pleasant Exam: left arm absess - Head Head exam: Present: atraumatic, normocephalic - Eye Eye exam: Present: PERRL, conjuntiva pink, sclera anicteric Pupils: Present: PERRL - Neck Neck exam general surgery: Present: supple, trachea midline. Absent: lymphadenopathy - Respiratory Respiratory exam: Present: CTAB. Absent: accessory muscle use, rales, rhonchi, wheezes - Cardiovascular Cardiovascular exam: Present: RRR, +S1, +S2. Absent: diastolic murmur, gallop, rubs, systolic murmur - GI/Abdominal GI/Abdominal exam: Present: normal bowel sounds, soft, no peritoneal signs. Absent: distended, tenderness - Extremities Exam Extremities exam: Present: warm, radial pulses palpable and symmetrical. Absent: calf tenderness, cyanotic, pedal edema - Neurological Exam Neurological exam: Present: CN II-XII intact, oriented X3, no focal deficits. Absent: pronater drift, facial droop, speech deficit - Skin Skin exam: Present: dry, intact - Patient Status Disposition: Home, Self-Care Condition: Fair - Discharge Instructions Instructions: Wound Infection (DC) Follow Up With: NONE,PCP [Primary Care Provider] -
[2019-04-09] MEDS ORDERED: Aminoglycoside Consult 1 EACH MC ONE (13:04)
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
== END 2019-04-09 13:05 | disposition home or self-care (01) | DRG 603 ==
LOC: EMEROOARM 15:46 → 3ANU 20:20
PROVIDERS: ADMIT Pediatrics; ATTEND Pediatrics